=== PATIENT | male | born 2000 | race Hispanic/Latino ===

== ENCOUNTER 2019-01-18 16:12 | Emergency (ER) | payer OTHER ==
[~2019-01-18] VITALS: Ht 172.7 cm; Wt 84.1 kg
[2019-01-18] MEDS ORDERED: PERC5TAB12 PO (16:27)
[2019-01-18] MEDS ORDERED: IBUP-1022 PO (16:27)
[2019-01-18] MEDS ORDERED: MORPHINE 4 MG/ML 1ML VIAL/SYRINGE (J2270) IM ONE (18:45)
[2019-01-18 20:01] VITALS: BP 140/89
== END 2019-01-18 20:07 | disposition home or self-care (01) ==
LOC: M ED 16:12
DX: K91.840 Postprocedural hemorrhage of a digestive system organ or structure following a digestive system procedure (principal); K08.89 Other specified disorders of teeth and supporting structures
CPT/HCPCS: 96372; 99283; J2270